=== PATIENT | female | born 2000 | race Caucasian/White ===

== ENCOUNTER 2020-09-29 23:19 | Emergency (ER) | payer SELFPAY ==
--- NOTE | 2020-09-29 23:50 | EDM.PDOC ---
ED HPI GENERAL MEDICAL PROBLEM - General Chief Complaint: PRIMARY OPERATOR Problem Stated Complaint: 18 WKS, STATES NO MOVEMENT Time Seen by Provider: 09/29/20 23:39 Source of Information: Reports: Patient History Limitations: Reports: No Limitations - History of Present Illness INITIAL COMMENTS - FREE TEXT/NARRATIVE: 20-year-old female A4, [place] 18 weeks presents with pelvic cramps for 1 week and concerns for no movement over the past 2 days. She denies fever, chills, vomiting, abdominal pain, dysuria, back pain. She has an appointment to see Nica Moran on 10/15. ROS: A 10-point review of systems, other than pertinent positives and negatives as stated per HPI, is otherwise negative Past medical history: No additional pertinent history Past Surgical history: No additional pertinent history Social history: No additional pertinent history Family history: No additional pertinent history PHYSICAL EXAM General: AOx4, GCS = 15, No distress HEENT: dry mucous membrane Neck: supple, no meningismus, no Kernig or Brudzinski Cardiac: S1S2 RRR Respiratory: CTAB, no crackles or rales, no wheezing Abdomen: Soft, nontender, no rebound or guarding, nondistended, no pulsatile mass. Back: nontender Musculoskeletal: NVI distally, no deformity Neuro: No focal deficits, CN 2 - 12 WNL. cramping Pain Score (Numeric/FACES): 5 - Related Data Allergies Allergy/AdvReac Type Severity Reaction Status Date / Time No Known Allergies Allergy Verified 09/29/20 23:27 Home Meds: Home Meds Pnv No.95/Ferrous Fum/Folic AC [ Caplet] 1 tab PO DAILY 09/29/20 [History] cephALEXin [Keflex] 500 mg PO Q8H #30 cap 09/30/20 [Rx] ED ROS GENERAL - Review of Systems Review Of Systems: See Below (see dictation) ED EXAM, GENERAL - Physical Exam Exam: See Below (see dictation) Course - Vital Signs Last Recorded V/S: Last Vital Signs Temp 98.2 F 09/29/20 23:41 Pulse 107 H 09/29/20 23:41 Resp 18 09/29/20 23:41 BP 145/78 H 09/29/20 23:41 Pulse Ox 98 09/29/20 23:41 - Orders/Labs/Meds Orders: Active Orders 24 hr Category Date Time Status ABO/RH TYPE [BBK] Stat Lab 09/29/20 23:40 Received COMPREHENSIVE METABOLIC PN,CMP [CHEM] Stat Lab 09/29/20 23:40 Received CULTURE URINE [RM] Stat Lab 09/29/20 23:27 Received HCG QUANTITATIVE [CHEM] Stat Lab 09/29/20 23:40 Received Labs: Laboratory Tests 09/29/20 09/30/20 Range/Units 23:27 00:45 WBC 12.88 H (4.0-11.0) K/uL RBC 3.63 L (4.30-5.90) M/uL Hgb 11.1 L (12.0-16.0) g/dL Hct 32.4 L (36.0-46.0) % MCV 89.3 (80.0-98.0) fL MCH 30.6 (27.0-32.0) pg MCHC 34.3 (31.0-37.0) g/dL RDW Std Deviation 40.4 (28.0-62.0) fl RDW Coeff of Mansi 13 (11.0-15.0) % Plt Count 209 (150-400) K/uL MPV 11.00 (7.40-12.00) fL Neut % (Auto) 73.0 (48.0-80.0) % Lymph % (Auto) 17.2 (16.0-40.0) % [place] % (Auto) 8.8 (0.0-15.0) % Eos % (Auto) 0.9 (0.0-7.0) % Baso % (Auto) 0.1 (0.0-1.5) % Neut # (Auto) 9.4 H (1.4-5.7) K/uL Lymph # (Auto) 2.2 (0.6-2.4) K/uL [place] # (Auto) 1.1 H (0.0-0.8) K/uL Eos # (Auto) 0.1 (0.0-0.7) K/uL Baso # (Auto) 0.0 (0.0-0.1) K/uL Urine Color YELLOW Urine Appearance SLT CLOUDY Urine pH 5.5 (5.0-8.0) Ur Specific [place] >= 1.030 (1.001-1.035) Urine Protein NEGATIVE (NEGATIVE) mg/dL Urine Glucose (UA) NEGATIVE (NEGATIVE) mg/dL Urine Ketones TRACE H (NEGATIVE) mg/dL Urine Occult Blood NEGATIVE (NEGATIVE) Urine Nitrite NEGATIVE (NEGATIVE) Urine Bilirubin NEGATIVE (NEGATIVE) Urine Urobilinogen 0.2 (<2.0) EU/dL Ur Leukocyte Esterase TRACE H (NEGATIVE) Urine RBC 0-2 (0-2/HPF) Urine WBC 7-10 (0-5/HPF) Ur Epithelial Cells MANY (NONE-FEW) Urine Bacteria 1+ H (NEGATIVE) Urine Mucus LIGHT (NONE-MOD) - Re-Assessments/Exams Free Text/Narrative Re-Assessment/Exam: 09/30/20 01:13 After ultrasound demonstrating normal heart tones in the ER, the patient is now reassured and stable for discharge. I performed a repeat exam and did not appreciate new abnormal findings. Patient exhibits normal vital signs and has a normal gait on road test. I advised the patient to return to the ER for reevaluation if symptoms worsened, including fever, worsening pain, or any other worrisome symptoms. I instructed the patient to follow up with Nica Moran as previously appointed on 10/15. MEDICAL DECISION MAKING: I reviewed the patients past medical records, lab and radiographic findings. I discussed the case with the patient. My differential diagnosis included: IUFD, UTI. Her urine demonstrated urinary tract infection. Ultrasound demonstrated normal heart tones in the 140s, with movement, she is reassured and will follow up with her PRIMARY OPERATOR. Departure - Departure Time of Disposition: 01:14 Disposition: Home, Self-Care 01 Condition: Good Clinical Impression: Urinary tract infection, Second trimester - Discharge Information *PRESCRIPTION DRUG MONITORING PROGRAM REVIEWED*: Not Applicable *COPY OF PRESCRIPTION DRUG MONITORING REPORT IN PATIENT WILSON: Not Applicable Prescriptions: cephALEXin [Keflex] 500 mg PO Q8H #30 cap Instructions: Urinary Tract Infection, Adult, Second Trimester of Referrals: Nica Moran MD [Physician] - 10/15/20 Forms: ED Department Discharge Additional Instructions: The need for follow-up, as well as the timing and circumstances, are variable depending upon the specifics of your emergency department visit. If you don't have a primary care physician on staff, we will provide you with a referral. We always advise you to contact your personal physician following an emergency department visit to inform them of the circumstance of the visit and for follow-up with them and/or the need for any referrals to a consulting specialist. The emergency department will also refer you to a specialist when appropriate. This referral assures that you have the opportunity for follow-up care with a specialist. All of these measure are taken in an effort to provide you with optimal care, which includes your follow-up. Under all circumstances we always encourage you to contact your private physician who remains a resource for coordinating your care. When calling for follow-up care, please make the office aware that this follow-up is from your recent emergency room visit. If for any reason you are refused follow-up, please contact the [facility] Emergency Department at and asked to speak to the emergency department charge nurse. If you do not have a primary care doctor, please follow up with the clinics below within 3-[address] [facility] - Primary Care [address] [place] [id number] [address] Sepsis Event Note (ED) - Focused Exam Vital Signs: Vital Signs Temp Pulse Resp BP Pulse Ox 09/29/20 23:41 98.2 F 107 H 18 145/78 H 98 - My Orders Last 24 Hours: My Active Orders 09/29/20 23:27 CULTURE URINE [RM] Stat 09/29/20 23:40 ABO/RH TYPE [BBK] Stat COMPREHENSIVE METABOLIC PN,CMP [CHEM] Stat HCG QUANTITATIVE [CHEM] Stat - Assessment/Plan Last 24 Hours: My Active Orders 09/29/20 23:27 CULTURE URINE [RM] Stat 09/29/20 23:40 ABO/RH TYPE [BBK] Stat COMPREHENSIVE METABOLIC PN,CMP [CHEM] Stat HCG QUANTITATIVE [CHEM] Stat
--- NOTE | 2020-09-30 01:07 | US ---
INDICATION: No movement, gestational age 18 weeks TECHNIQUE: Ultrasound OB pelvis transabdominal. Real-time solano-scale imaging of the fetus was performed. COMPARISON: None FINDINGS: Sonographic imaging demonstrates a single living intrauterine gestation. Fetus demonstrates a regular cardiac rate of 145 beats per minute. Fetus has a cephalic orientation. The placenta lies posterior and fundal and to the maternal right without evidence of placenta previa. Amniotic fluid volume appears normal. Single deepest vertical pocket: 3.8 cm. The cervical length is 5.3 cm. The composite ultrasound gestational age is calculated at 19 weeks 1 day with an estimated sonographic due date of February 23, 2021.. The estimated weight is 283 grams which lies at the 85 %. The following biometric measurements were obtained: Biparietal diameter: 4.4 cm/19 weeks 3 days Head circumference: 15.9 cm/18 weeks 5 days Abdominal circumference: 13.8 cm/19 weeks 2 days Femur length: 3.0 cm/19 weeks 3 days IMPRESSION: 1.Single viable intrauterine . 2.Calculated gestational age is 19 weeks 1 day with estimated due date of February 23, 2021. Dictated by Daily Naqvi MD @ Sep 30 2020 1:06AM Signed by Dr. Daily Naqvi @ Sep 30 2020 1:06AM
[2020-09-30 01:45] LABS: BLOOD UREA NITROGEN,BUN 6 mg/dL (7.0-18.0); CARBON DIOXIDE,CO2 22.5 mmol/L (21.0-32.0); CHLORIDE,CL 103 mmol/L (98-107); GLUCOSE RANDOM 80 mg/dL (74-106); POTASSIUM,K 3.5 mmol/L (3.5-5.1); SODIUM,NA 137 mmol/L (136-145)
== END 2020-09-30 01:49 | disposition home or self-care (01) ==
LOC: MW.ED 23:19
DX: O23.42 Unspecified infection of urinary tract in pregnancy, second trimester (principal); Z3A.18 18 weeks gestation of pregnancy
CPT/HCPCS: 36415; 76815; 76815-26; 80053; 81001; 84702; 85025; 86900; 86901; 87086; 99284-25